=== PATIENT | male | born 1970 | race Two or more races ===

== ENCOUNTER 2017-05-20 13:14 | Emergency (ER) | payer MEDICAID ==
[2017-05-20 16:33] VITALS: BP 146/93
== END 2017-05-20 16:33 | disposition home or self-care (01) ==
LOC: ED 13:14
DX: S11.91XA Laceration without foreign body of unspecified part of neck, initial encounter (principal); S50.02XA Contusion of left elbow, initial encounter; V49.49XA Driver injured in collision with other motor vehicles in traffic accident, initial encounter; Y93.89 Activity, other specified; Y99.8 Other external cause status; Y92.89 Other specified places as the place of occurrence of the external cause
CPT/HCPCS: 90715; J1885; J2001